=== PATIENT | male | born 1985 | race Caucasian/White ===

== ENCOUNTER 2021-10-14 11:39 | Emergency (ER) | payer BC, SELFPAY ==
[2021-10-14 11:47] VITALS: BP 111/80; PULSE 78; RESP 14; TEMP 37.6; O2SAT 100
--- NOTE | 2021-10-14 12:53 | ED.URI ---
HPI - URI/Sore Throat General Chief Complaint: Upper Respiratory Infection Stated Complaint: aches chills dizzy headache throat Time Seen by Provider: 10/14/21 12:56 Source: patient, RN notes reviewed and old records reviewed Mode of arrival: ambulatory Limitations: no limitations History of Present Illness HPI Narrative: 36 year old male presents to [facility] with complaints of body aches, chills, feeling dizzy, frontal headache.sore throat, nasal drainage and also cough with green yellow mucous since Friday evening. Patient reports that he has been taking some Tylenol for his symptoms. Patient states that he has had a low grade fever, denies any shortness of breath or any noted wheezing. Patient has not received COVID or Flu vaccination. MD elicited complaint: cough and sore throat Treatments prior to arrival: acetaminophen Related Data Home Medications Medication Instructions Recorded Confirmed No Home Medications 10/14/21 10/14/21 Allergies Allergy/AdvReac Type Severity Reaction Status Date / Time No Known Allergies Allergy Verified 10/14/21 11:55 Review of Systems Review of Systems: CONSTITUTIONAL: Positive for low grade fever, chills, or sweats. EYES: Denies visual changes, redness, or discharge. ENT: Positive for rhinorrhea, congestion, sore throat, no otalgia. CARDIOVASCULAR: Denies chest pain, palpitations, or edema. RESPIRATORY: Positive for cough denies dyspnea. GASTROINTESTINAL: Denies abdominal pain, nausea, vomiting, or diarrhea. GENITOURINARY: Denies dysuria or hematuria. SKIN: Denies rash or itching. MUSCULOSKELETAL: Denies back pain, joint pain, positive for body aches. NEUROLOGIC: Positive for headache, no numbness, or weakness.reports some dizziness PSYCHIATRIC: Denies anxiety or depression. All systems reviewed & are unremarkable except as noted in HPI and below [facility] Past Medical History Medical History (Updated 10/15/21 @ 15:00 by Sary Mckeon NP) No significant past medical history Surgical History Surgical History (Updated 10/15/21 @ 15:01 by Sary Mckeon NP) No history of previous surgery Social History Social History (Updated 10/15/21 @ 15:02 by Sary Mckeon NP) Smoking status: Former smoker Alcohol intake: current Alcohol use details: social Substance use: never Living arrangements: with family Gender identity (if verbalized by the patient): Male Exam Narrative: GENERAL: Well-appearing, well-nourished, and in no acute distress. HEAD: Normocephalic, atraumatic. EYES: PERRLA and EOMI. ENT: Nares red with clear rhinorrhea no epistaxis. Mucous membranes moist.TM's normal with good light reflex, throat red with no lesions, exudates, tonsil swelling. post nasal drainage present. NECK: Supple.no lymphadenopathy CHEST: Clear to auscultation. No respiratory distress.cough productive SAO2 100% on room air. HEART: Regular rate and rhythm. No murmur heard. Normal peripheral pulses. ABDOMEN: Soft, nontender, nondistended, normal active bowel sounds. EXTREMITIES: Normal range of motion. No edema. SKIN: Warm, dry, no rash. NEURO: No focal deficits. Alert and oriented x3. Course Course Level of Care: Express Care Visit Vital Signs Vital signs: Vital Signs Temperature 37.6 C H 10/14/21 11:47 Pulse Rate 78 10/14/21 11:47 Respiratory Rate 14 10/14/21 11:47 Blood Pressure 111/80 10/14/21 11:47 Pulse Oximetry 100 10/14/21 11:47 Temperature 37.6 C H 10/14/21 11:47 Pulse Rate 78 10/14/21 11:47 Respiratory Rate 14 10/14/21 11:47 Blood Pressure 111/80 10/14/21 11:47 Pulse Oximetry 100 10/14/21 11:47 MDM - URI/Sore Throat Differential Diagnosis Differential diagnosis: Likely upper respiratory infection, viral infection, influenza, pharyngitis and other (covid test) Medical Records Attestation: I reviewed the patient's medical records. Lab Data Attestation: I reviewed the patient's lab results. Lab results narrative:
== END 2021-10-14 13:18 | disposition home or self-care (01) ==
PROVIDERS: Emergency Provider Registered Nurse
DX: J06.9 Acute upper respiratory infection, unspecified (principal); J02.9 Acute pharyngitis, unspecified; Z20.822 Contact with and (suspected) exposure to COVID-19; Z87.891 Personal history of nicotine dependence
CPT/HCPCS: 87081; 87804; 87880; 99203; G0463

== ENCOUNTER → 2021-10-16 02:40 | Outpatient (CLI) | payer BC, SELFPAY ==
[2021-10-17 20:49] LABS: SARS-CoV-2 RNA PCR Positive
== END ==
PROVIDERS: Visit Provider Registered Nurse
DX: U07.1 COVID-19 (principal); J06.9 Acute upper respiratory infection, unspecified
CPT/HCPCS: C9803; U0003; U0005

== ENCOUNTER 2022-08-31 11:26 | Emergency (ER) | payer BC, SELFPAY ==
[2022-08-31 11:34] VITALS: BP 136/76; PULSE 84; RESP 20; TEMP 36.3; O2SAT 100
--- NOTE | 2022-08-31 11:57 | ED.URI ---
HPI - URI/Sore Throat General Chief Complaint: Upper Respiratory Infection Stated Complaint: Sore Throat Time Seen by Provider: 08/31/22 11:57 History of Present Illness HPI Narrative: patient presents with sore throat no trouble swallowing and no drooling Related Data Allergies Allergy/AdvReac Type Severity Reaction Status Date / Time No Known Allergies Allergy Verified 08/31/22 11:41 Review of Systems Review of Systems: CONSTITUTIONAL: Denies chills, or sweats. Reports fever and generalized body aches EYES: Denies visual changes, redness, or discharge. ENT: Denies otalgia. Reports nasal congestion runny nose and sore throat CARDIOVASCULAR: Denies chest pain, palpitations, or edema. RESPIRATORY: Denies dyspnea. Reports occasional cough GASTROINTESTINAL: Denies abdominal pain, nausea, vomiting, or diarrhea. GENITOURINARY: Denies dysuria or hematuria. SKIN: Denies rash or itching. MUSCULOSKELETAL: Denies back pain, joint pain, or myalgia. Reports generalized body aches NEUROLOGIC: Denies headache, numbness, or weakness. PSYCHIATRIC: Denies anxiety or depression. [facility] Past Medical History Medical History (Updated 08/31/22 @ 12:00 by BETH Frias) No significant past medical history Surgical History Surgical History (System 12/19/21 @ 16:02 by Riri Gentile) No history of previous surgery Social History Social History (System 12/19/21 @ 16:02 by Riri Gentile) Smoking status: Former smoker Alcohol intake: current Alcohol use details: social Substance use: never Gender identity (if verbalized by the patient): Male Comments At time of signature, agree with nursing past medical, surgical, social and family history. There is no relevant family history pertinent to the presenting complaint Exam Narrative: The patient is a well-developed, well-nourished in no acute distress. SKIN: Skin is warm and dry without erythema, swelling or exudate. There is good turgor. No tenting. HEAD: Atraumatic. Normocephalic. No temporal or scalp tenderness. EYES: Moist and bright. Sclera and conjunctivae normal. No discharge. PERRLA. Extraocular motions intact. Gross visual acuity intact. EARS: Pinna is normal shape and contour. Clear external auditory canals. TM pearly mcmillan with good cone of light, no erythema or suppuration. Bilateral cerumen noted no gross hearing deficit. NOSE: pink, moist mucosa with good air movement. Clear rhinorrhea without nasal flaring. Septum midline. Mouth: moist mucous membranes. THROAT; mild erythema noted to posterior oropharynx with moderate postnasal drainage. Without exudate or ulceration.. Uvula midline. Normal movement of soft palate. NECK: Supple and nontender with full range of motion without discomfort. No meningeal signs. LUNGS: Equal and bilateral breath sounds without wheezes, rales or rhonchi. CHEST: The chest wall is without retractions or use of accessory muscles. HEART: Has a regular rate and rhythm without murmur, gallops, click or rub. ABDOMEN: Soft, nontender with positive active bowel sounds. No rebound tenderness. EXTREMITIES: Without cyanosis, clubbing or edema. Equal 2+ distal pulses and 2 second capillary refill noted. NEUROLOGIC: alert, active, . The patient moves all extremities with normal muscle strength. Normal muscle tone is noted. Normal coordination is noted. NO focal neurological findings noted. Course Course Level of Care: Express Care Visit Vital Signs Vital signs: Vital Signs Temperature 36.3 C L 08/31/22 11:34 Pulse Rate 84 08/31/22 11:34 Respiratory Rate 20 08/31/22 11:34 Blood Pressure 136/76 08/31/22 11:34 Pulse Oximetry 100 08/31/22 11:34 Oxygen Delivery Room Air 08/31/22 11:34 Temperature 36.3 C L 08/31/22 11:34 Pulse Rate 84 08/31/22 11:34 Respiratory Rate 20 08/31/22 11:34 Blood Pressure 136/76 08/31/22 11:34 Pulse Oximetry 100 08/31/22 11:34 Oxygen Delivery Room Air 08/31/22 11:34
== END 2022-08-31 12:14 | disposition home or self-care (01) ==
PROVIDERS: Emergency Provider Nurse Practitioner Family
DX: J02.0 Streptococcal pharyngitis (principal); Z87.891 Personal history of nicotine dependence
CPT/HCPCS: 87880; 99213; G0463